=== PATIENT | female | born 1970 | race African-American/Black ===

== ENCOUNTER 2022-03-14 22:50 | Outpatient (CLI) | payer SELFPAY ==
--- OUTSIDE RECORDS SUMMARY | 2022-04-21 20:03 | XMS_ITS | Encounter Summary ---
:1970 Author Organization [facility] Address [address] [place] [address] Care Team Providers Name Role Phone Unavailable Primary Care Provider Unavailable Reason for Visit Reason Onset Date Comments Travel Consult 12/06/2020 Encounter Details Date Type Department Care Team Description 12/06/2020 Office Visit [facility] [address] [employer] ing for travel; Travel Clinic RN Need for immunization agains t viral hepatitis [address] [facility]. [place], [place] [phone] Social History Tobacco Use Types Packs/Day Years [...] countries: 9 weeks. Countries of travel: [place] ([facility]) Areas in country: rural and urban Traveling to Malarial area: yes Time in malarial area: 9 weeks. Reviewed Malarial risk map: yes Prior malarial chemoprophylaxis use: Yes, Pt. Reports she gets her malaria chemoprophylaxis in [place]. She is not sure of name of [...] 02/28/2010, 05/31/2013 ??? Influenza IIV4 (Quadrivalent) 0.5mL ([id number]) 03/01/2015, 03/17/2019 ??? Influenza, Unspecified Formulation 03/01/2016 [...]
--- OUTSIDE RECORDS SUMMARY | 2022-04-21 20:03 | XMS_ITS | Clinical Summary ---
:1970 [facility] Address [address] [place] [address] Care Team Providers Name Role Phone Unavailable [...] for each transition of care or referral. [employer] Allergies Active Allergy Reactions Severity Noted Date [...] yrs) 05/31/2013, 02/28/2010 Influenza IIV4 (Quadrivalent) 0.5mL (13723) 03/17/2019, 02/15 Influenza, Unspecified Formulation 03/01/2016 MCV4 [...]
--- OUTSIDE RECORDS SUMMARY | 2022-04-21 20:03 | XMS_ITS | Clinical Summary ---
:1970 Author Organization [facility] [place] [address] Care Team Providers Name Role Phone Alayna Harp Primary Care Provider [phone] Allergies Active Allergy Reactions Severity Noted Date [...] Encounters Date Type Specialty Care Team Description 04/21/2022 Telephone Alayna Harp, Form (PROOF OF FULL COVID-19 PA VACCINATION) from Last 3 Months Immunizations Name Administration Dates Next Due AMB Influenza, IIV4 PF (=>6 mos 03/17/2019 Flulaval,Fluzone Fluarix)(Flu Clinic Only) COVID-19 vaccine (Moderna 100mcg/0.5mL) 06/18/2020, 05/24/19 21 PF, MDV Hepatitis A (Adult) 05/31/2013, 02/28/2010 Influenza Virus, Unspecified 03/01/2016 Influenza, IIV3 (Age >=3 years) 04/05/2007 Influenza, IIV4 02/26/2022, 03/05/2021, 03/01/2015 Influenza, IIV4 (=>6mos) MDV 01/22/2018, 01/20/2017 [...] 05/09 40w 4 kg (8 F Jenny 0d lb 13 ng oz) 09/17 39w 3.26 kg F Jenny /2005 0d (7 lb 3 ng oz) Last Filed Vital Signs Vital Sign Reading Time Taken Comments Blood Pressure 117/78 07/08/2021 10:01 AM PATROL MAN Pulse 96 07/08/2021 10:01 AM PATROL MAN Temperature 36.8 ??C (98.3 ??F) 01/24/2019 6:38 PM CDT Respiratory Rate 16 11/21/2020 8:47 AM CDT Oxygen Saturation 99% 11/21/2020 8:47 AM CDT Inhaled Oxygen Concentration - - Weight 62.6 kg (138 lb) 07/08/2021 10:01 AM PATROL MAN Height 162 cm (5' 3.78) 07/08/2021 10:01 AM PATROL MAN Body Mass Index 23.85 07/08/2021 10:01 AM PATROL MAN Plan of Treatment Health Maintenance Due Date Last Done Comments Zoster (shingles) series for age 0207/15/2019 50+ (1 of 2) Depression screening for age 12+ 10/26/2021 10/26/2020, 01/2019, 01/22/2018, Additional history exists Mammogram for age 45-75 10/26/2021 10/26/2020, 04/25/2019, 01/20/2017, Additional history exists BMI (ht and wt on same day) for 07/08/2022 07/08/2021, 05/19, age 18+ 06/10/2021, Additional history exists Tetanus booster 05/31/2023 05/31/2013, 04/17/2004 Lipids for age 45-75 10/26/2025 10/26/2020, 01/24/2019, 01/20/2017, Additional history exists Pap test for age 21-65 10/26/2025 10/26/2020, 10/26/2020, 01/22/2018, Additional history exists Colonoscopy through age 75 11/21/2030 11/21/2020, , 11/21/2020, Additional history exists Tdap Completed 04/17/2004 HIV for age 15-65 Completed 02/20/2020, 07/19/2019 Hepatitis C screening for age Completed 02/20/2020, 2019 18-79 Influenza for age 50-64 Completed 02/26/2022, 03/05/2021, 03/17/2019, Additional history exists COVID-19 vaccine series Completed 03/05/2022, 04/09/2021, 06/18/2020, Additional history exists Results Not on filefrom Last 3 Months Insurance Payer Benefit Plan / Subscriber ID Effective Phone Address T ype Group Dates [employer] WORK[employer] WORK[employer] COMP [id number] 2011-Pres [phone] [address] [place] [address] WC WORK[employer] WC JOSE JUAN [id number] 2019-Pre 1999 [employer] [phone] [place] [address] WC WORKERS WC MEAWYOAN [id number] 2021-Pres 1999 [employer] [phone] [place] [address] MEDICA MEDICA CHOICE [id number] 2020-Prese [address] [address] [place] [address] Care Teams Drag Out Worker Relationship Specialty Start Date End Date Alayna Harp PA PCP - General Family Practice 04/30/15 [address] [place] [address]
== END 2022-03-14 22:51 | disposition home or self-care (01) ==
LOC: AMB 04-21 20:01
PROVIDERS: PCP Physician Assistant Medical; Visit Provider Family Medicine
DX: M54.9 Dorsalgia, unspecified (principal)
CPT/HCPCS: A0425; A0427

== ENCOUNTER 2022-03-14 23:14 | Emergency (ER) | payer SELFPAY ==
[2022-03-14 23:23] VITALS: BP 140/86; PULSE 79; RESP 16; TEMP 36.6; O2SAT 98; BMI 23.0
[2022-03-15] MEDS: KETOROLAC 30 MG/ML inj IVP (00:04)
[2022-03-15] MEDS: 0.9 % SODIUM CHLORIDE 500 ML 500 ML IV (00:04)
[2022-03-15] MEDS: LORazepam 2 MG/ML inj 0.5 MG IVP (00:05)
[2022-03-15] MEDS: MORPHINE 4 MG/ML INJ IVP (00:07)
--- NOTE | 2022-03-15 00:29 | ED_ITS ---
HPI - Back Pain/Injury General Date Seen: 03/15/22 Chief Complaint: Back Injury/Pain Stated Complaint: backpain Time Seen by Provider: 03/14/22 23:34 Source: patient, family and EMS Mode of arrival: EMS Limitations: no limitations History of Present Illness HPI Narrative: Patient is a 51-year-old female presents by EMS with back pain and spasm, been having back pain for last couple days, went to her chiropractor today, the back pain gradually worsened as the day went on, and she was unable to get upper straight up, which necessitated for calling the ambulance. She describes back pain, that radiates down both of her buttocks, she is not incontinent of stool or urine, she did take Tylenol ibuprofen today. She has been using some heat on her back also. She tells me she has a history of an S3 or L3 issue, she sees Alayna Vega at [facility]. 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 The pain worsened today with a coughing/sneezing episode MD elicited complaint: back pain Onset (ago): day(s) Timing: improved Severity: severe Similar Symptoms Previously: Yes Quality: sharp and stabbing Location: lumbar spine Exacerbating factors: movement, sitting upright and coughing/sneezing Treatments prior to arrival: cold therapy, NSAIDS and acetaminophen Work related injury: Yes Related Data Home Medications Medication Instructions Recorded Confirmed amlodipine 5 mg tablet 5 mg PO DAILY 03/14/22 03/14/22 Allergies Allergy/AdvReac Type Severity Reaction Status Date / Time azithromycin AdvReac Verified 03/14/22 23:23 Review of Systems Status of ROS: Reports: 10 or more systems reviewed and unremarkable except as noted in History and below Exam Narrative: Exam Narrative: Patient is seen and stabilization room 2, she is lying on her right side, with a pillow between her legs, she was able to get up to the sitting position and standing position for me, she does have a scoliosis of her back which likely is reactive from muscle spasm convex left. No palpable pain over her back on palpation or percussion she has grossly normal sensation over her sacral area. She has stooped forward in a forward flexed posture, and can come straight up to folic extension. SLR is are negative to 90? sitting, EHLs great toe flexors and extensors, ankle dorsiflexors plantar flexors knee flexors and extensors, and hip flexors are graded 5/5 power bilaterally her reflexes are +2/4 her ankles and knees in her sensation is normal over all her dermatomal areas. Skin reveals no petechiae or rashes Const: Vital Signs, click to edit/add: Vital Signs - 24 hr 03/14/22 23:23 Temperature 97.9 F Pulse Rate [Left P ulse Oximeter] 79 Respiratory Rate 16 Blood Pressure [Ri ght Upper Arm] 140/86 H Pulse Oximetry 98 Oxygen Delivery Me thod Room Air Documenting provider has reviewed patient's vital signs: yes Course Course Hospital Course: With the treatments her pain improved, I was able to review the [facility] MRI from 2019. Of her lumbar spine. This showed at L3-L4 disc degeneration along with impingement on the transversing nerve root. At L4. And also at L3. I discussed with her that I think home rest use of medications along with a prednisone burst would be favorable for her. Off work for the next 3 days. Went over signs and symptoms of worsening, review of the CHILDH[employer]OD DEVELOPMENT TEACHER did not show any prescriptions. Vital Signs Vital signs: Initial Vital Signs Temperature 97.9 F 03/14/22 23:23 Temperature Source Temporal Artery Scan 03/14/22 23:23 Pulse Rate 79 03/14/22 23:23 Pulse Rhythm 03/14/22 23:23 Respiratory Rate 16 03/14/22 23:23 Blood Pressure 140/86 H 03/14/22 23:23 Blood Pressure Mean 104 03/14/22 23:23 Blood Pressure Position Supine 03/14/22 23:23 Pulse Oximetry 98 03/14/22 23:23 Oxygen Delivery Method 03/14/22 23:23 Vital Signs Temperature 97.9 F 03/14/22 23:23 Pulse Rate 79 03/14/22 23:23 Respiratory Rate 16 03/14/22 23:23 Blood Pressure 140/86 H 03/14/22 23:23 Pulse Oximetry 98 03/14/22 23:23 Oxygen Delivery Method 03/14/22 23:23 Temperature 97.9 F 03/14/22 23:23 Pulse Rate 79 03/14/22 23:23 Respiratory Rate 16 03/14/22 23:23 Blood Pressure 140/86 H 03/14/22 23:23 Pulse Oximetry 98 03/14/22 23:23 Oxygen Delivery Method 03/14/22 23:23 MDM - Back Pain/Injury MDM Narrative Medical decision making narrative: Life-threatening differential diagnosis considered include: Cauda equina an epidural abscess, other differential diagnosis considered includes sprain, contusion, nerve root entrapment, radiculopathy, muscle spasm, urolithiasis, lumbar fracture, pyelonephritis, appendicitis, biliary colic, as well as other etiologies. The patient denies saddle anesthesia bowel or bladder incontinence or lower extremity weakness, recent weight loss, or history of malignancy. Differential Diagnosis Differential diagnosis: Likely lumbar radiculopathy, sciatica, strain of lumbar region, renal colic, pyelonephritis, thoracic back pain, AAA and discitis Medical Records Attestation: I reviewed the patient's medical records. Discharge Plan Discharge Clinical Impression: Strain of lumbar region Patient Disposition: Home w/ Parent or Adult Condition: Improved Instructions: Low Back Strain (ED), Back Pain (ED), Cold Compress or Soak (ED) Additional Instructions: Home, rest, no work for the next 3 days, let your back improved. Recommend follow-up with her primary care provider in the next few days. Prescriptions given for pain medication along with muscle relaxant. Prescriptions: No Action amlodipine 5 mg tablet 5 mg PO DAILY Stand Alone Forms: [employer] Info Instructions
--- OUTSIDE RECORDS SUMMARY | 2022-03-15 00:36 | XMS_ITS | Clinical Summary ---
:1970 Author Organization [facility] [place] [address] Care Team Providers Name Role Phone Alayna Harp Primary Care Provider [phone] Allergies Active Allergy Reactions Severity Noted Date Comments Erythromycin Rash 09/14/2007 Medications Medication Sig Dispensed Refills Start Date End Date Status multivitamin (MVI) Take 1 tablet by 0 11/25/2011 Active tablet mouth once daily. diclofenac enteric Take 1 Tablet (50 60 tablet. 0 12/05/2020 Active coated (VOLTAREN) 50 mg) by mouth 2 mg tabletIndications: times daily with Chronic midline low meals. back pain without sciatica LORazepam (ATIVAN) 0.5 Take 1-2 Tablets 10 tablet. 0 1 Active mg tabIndications: (0.5-1 mg) by Anxiety mouth at bedtime if needed for Anxiety. 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 09/14/2007 Resolved Problems Problem Noted Date Resolved Date Palpitations 02/05/2009 12/09/2014 Iron deficiency anemia, unspecified 08/16/200811/16 Helicobacter pylori (H. pylori) 06/30/2008 12/10/19 15 Encounters Date Type Specialty Care Team Description 12/27/2021 Telephone Alayna Harp Ques tions (Regarding positive PA COVID-19 result and medications) 12/27/2021 Refill Alayna Harp Refi ll Request (Amlodipine) PA from Last 3 Months Immunizations Name Administration Dates Next Due AMB Influenza, IIV4 PF (=>6 mos Flulaval,Fluzone 03/17/2019 Fluarix)(Flu Clinic Only) COVID-19 vaccine (Moderna 100mcg/0.5mL) PF, MDV 06/18/2020, 05/24/2020 Hepatitis A (Adult) 05/31/2013, 02/28/2010 Influenza Virus, Unspecified 03/01/2016 Influenza, IIV3 (Age >=3 years) 04/05/2007 Influenza, IIV4 03/01/2015 Influenza, IIV4 (=>6mos) MDV 01/22/2018, 01/20/2017 MMR 11/05/2016, 04/15/2016 Meningococcal Vaccine (Menveo) 04/15/2016 Td, Preservative Free (age >= 7 Years) 05/31/2013 Tdap 04/17/2004 Typhoid (injectable) 10/26/2020, 11/05/2016 Yellow Fever 02/28/2010 Family History Medical History Relation Name Comments Diabetes Father Dementia Mother late onset Diabetes Other in family Cancer-breast No Family History Relation Name Status Comments Father (Age 92) Mother (Age 83) Other Social History Tobacco Use Types Packs/Day Years Used Date Never Smoker Smokeless Tobacco: Never Used Tobacco Cessation: Counseling Given: Yes Alcohol Use Standard Drinks/Week Comments No 0 (1 standard drink = 0.6 oz pure alcoho l) Sex Assigned at Date Recorded Not on file Obstetrics History Para Term AB IAB SAB Ectopic Multiple Living Live Births 4 2 2 2 Date Outcome GA Total Labor/2nd/3rd Weight Sex Delivery Anes PTL Alyssa A 1 A5 Name Clin Labor Para Para 05/09 40w 4 kg (8 F Jenny /2002 0d lb 13 ng oz) 09/17 39w 3.26 kg F Jenny /2005 0d (7 lb 3 ng oz) Last Filed Vital Signs Vital Sign Reading Time Taken Comments Blood Pressure 117/78 07/08/2021 10:01 AM APPLIED TECHNOLOGIST Pulse 96 07/08/2021 10:01 AM APPLIED TECHNOLOGIST Temperature 36.8 ??C (98.3 ??F) 01/24/2019 6:38 PM CDT Respiratory Rate 16 11/21/2020 8:47 AM CDT Oxygen Saturation 99% 11/21/2020 8:47 AM CDT Inhaled Oxygen Concentration - - Weight 62.6 kg (138 lb) 07/08/2021 10:01 AM APPLIED TECHNOLOGIST Height 162 cm (5' 3.78) 07/08/2021 10:01 AM APPLIED TECHNOLOGIST Body Mass Index 23.85 07/08/2021 10:01 AM APPLIED TECHNOLOGIST Plan of Treatment Health Maintenance Due Date Last Done Comments Zoster (shingles) series for age 0207/15/2019 50+ (1 of 2) COVID-19 vaccine series (4 - 06/04/2021 04/09/2021, 021, Booster for Moderna series) 05/24/2020 Depression screening for age 12+ 10/26/2021 10/26/2020, 01/2019, 01/22/2018, Additional history exists Mammogram for age 45-75 10/26/2021 10/26/2020, 04/25/2019, 01/20/2017, Additional history exists Influenza for age 50-64 01/16/2022 03/17/2019, 01/22/2018, 01/20/2017, Additional history exists BMI (ht and wt on same day) for 07/08/2022 07/08/2021, 05/19, age 18+ 06/10/2021, Additional history exists Tetanus booster 05/31/2023 05/31/2013, 04/17/2004 Lipids for age 45-75 10/26/2025 10/26/2020, 01/24/2019, 01/20/2017, Additional history exists Pap test for age 21-65 10/26/2025 10/26/2020, 10/26/2020, 01/22/2018, Additional history exists Colonoscopy through age 75 11/21/2030 11/21/2020, , 11/21/2020, Additional history exists Tdap Completed 04/17/2004 Hepatitis C screening for age Completed 02/20/2020, 2019 18-79 Results Not on filefrom Last 3 Months Insurance Payer Benefit Plan / Subscriber ID Effective Phone Address T ype Group Dates WC WORKERS WC WORKERS COMP [id number] 2011-Pres [phone] [address] [place] [address] WC WORKERS WC JOSE JUAN [id number] 2019-Pre 1999 [employer] sent [address] [place] [address] WC WORKERS WC MEAWYOAN [id number] 2021-Pres 1999 [employer] ent [address] [place] [address] MEDICA MEDICA CHOICE [id number] 2020-Prese [address] [address] [place] [address] Care Teams Mapping Pilot Relationship Specialty Start Date End Date Alayna Harp PA PCP - General Family Practice 04/30/15 [address] [place] [address]
--- OUTSIDE RECORDS SUMMARY | 2022-03-15 00:36 | XMS_ITS | Encounter Summary ---
:1970 [facility] Address [address], [place] [address] Care Team Providers Name Role Phone Unavailable Primary Care Provider Unavailable Reason for Visit Reason Onset Date Comments Travel Consult 12/06/2020 Encounter Details Date Type Department Care Team Description 12/06/2020 Office Visit [facility] [address] Clean[address] ing for travel; Travel Clinic RN Need for immunization agains t viral hepatitis [address] [facility]. [place], [place] [id number] Social History Tobacco Use Types Packs/Day Years Used Date Smoking Tobacco: Never Assessed Sex Assigned at Date Recorded Not on file documented as of this encounter Patient Instructions Patient InstructionsAshlee Silva, RN - 12/06/2020 3:00 PM CDT Pt was told about CDC's new guidelines: Effective June 12, the Centers of Disease Control and Prevention (CDC) will require all air passengers entering the [place] (including [place] citizens and Legal Permanent Residents) to present anegative COVID-19 test, taken within three calendar days of departure, or proof of recovery from thevirus within the last 90 days. Airlines must confirm the negative test result or proof of recent recovery for all passengers prior to boarding. Airlines must deny boarding of passengers who do not provide documentation of a negative test or recovery. The CDC is recommending that international travelers get tested 3-5 days after travel and stay home for 7 days. If the test is negative, the traveler should stay home for the full 7 days. If a travelerdoes not get tested, it???s safest to stay home for 14 days. These new recommendations are importantsteps in controlling the spread of COVID-19. documented in this encounter Progress Notes Ashlee Silva RN - 12/06/2020 3:00 PM CDT Subjective: Tiffanie Michael is a 50 y.o. female who presents to the clinic for travel consultation individually. TRAVEL PLANS Planned departure date: December 08, 2020 Time in developing countries: 9 weeks. Countries of travel: [place] ([facility]) Areas in country: rural and urban Traveling to Malarial area: yes Time in malarial area: 9 weeks. Reviewed Malarial risk map: yes Prior malarial chemoprophylaxis use: Yes, Pt. Reports she gets her malaria chemoprophylaxis in [facility]. She is not sure of name of drug, but declines malaria chemoprophylaxis today. Traveling to Yellow Fever area: yes, new YF card given Accommodations: private home Purpose of travel: visiting friends and relatives (VFR) PRIOR HEALTH HISTORY Currently ill / Fever:No Currently taking antibiotics: No History of liver or kidney disease: No History of anxiety or depression: Has lorazepam Rx for flight anxiety History of cardiac arrhythmia or rhythm conduction abnormalities (QT prolongation): No History of GERD/IBS:No History of cancer: No Currently immune compromised or taking high dose steroids: No Other relevant travel health history: No There is no problem list on file for this patient. Allergies Allergen Reactions ??? Erythromycin Rash Outpatient Medications Prior to Visit Medication Sig Dispense Refill ??? amLODIPine (NORVASC) 5 MG tablet ??? diclofenac (VOLTAREN) 50 MG enteric coated tablet Take 50 mg by mouth. ??? LORazepam (ATIVAN) 0.5 MG tablet No facility-administered medications prior to visit. Is the patient ?no ?no Assessment: Contraindications to travel: No Plan: PATIENT EDUCATION Patient was given verbal and/or written information about: Trypanosomiasis, Dengue Fever, Diphtheria/Tetanus, Filarial, Hepatitis A, Hepatitis B, HIV, Influenza, Insect-related illnesses and prevention, Leishmaniasis, Malaria, Meningitis, MMR, Polio, Rabies--pre-exposure schedule, Rabies--post-exposure schedule, Schistosomiasis, Sexually Transmitted Diseases, Tickborne Illnesses, Travax/CDC information, Traveler's Diarrhea, Tuberculosis, Typhoid, Varicella, Viral hemorrhagic fever, Yellow Fever, Zika COVID-19. Reviewed vaccine schedule and efficacy. Patient was also provided information about health care and insurance information while traveling abroad. Patient appears to understand all the information provided. Discussed the use of Pepto Bismol and Imodium (follow package insert) See below for vaccines and medications ordered this visit. 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 Return To Clinic: No follow-up visit needed. More than 50% of appointment time spent on patient education or counseling. Total counseling time: 15 minutes. IMMUNIZATIONS AND PRESCRIPTIONS Immunization counseling was provided for the vaccines that were administered at the visit No orders of the defined types were placed in this encounter. Orders Placed This Encounter Medications ??? ciprofloxacin (CIPRO) 500 MG tablet Sig: Take one tablet twice a day for three days for severe traveler's diarrhea. Dispense: 6 Tablet Refill: 0 Immunization History Administered Date(s) Administered ??? Flu Vac (3+ yrs) 04/05/2007 ??? Fluzone Qiv Multidose Vial 0.25 (6-35 Mos) 01/20/2017, 01/22/2018 ??? HepA Adult (19+ yrs) 02/28/2010, 05/31/2013 ??? Influenza IIV4 (Quadrivalent) 0.5mL (78189) 03/01/2015, 03/17/2019 ??? Influenza, Unspecified Formulation 03/01/2016 ??? MCV4 (Menveo) 04/15/2016 ??? MMR 04/15/2016, 11/05/2016 ??? Moderna COVID-19 05/24/2020, 06/18/2020 ??? Td, Preservative Free 05/31/2013 ??? Tdap 04/17/2004 ??? Typhoid (Typhim Vi, IM) 11/05/2016, 10/26/2020 ??? YF (Yellow Fever) 02/28/2010 documented in this encounter Plan of Treatment Not on filedocumented as of this encounter Visit Diagnoses Diagnosis Counseling for travel Other specified counseling Need for immunization against viral hepa titis Need for prophylactic vaccination and in oculation against viral hepatitis documented in this encounter
--- OUTSIDE RECORDS SUMMARY | 2022-03-15 00:36 | XMS_ITS | Clinical Summary ---
:1970 [facility] Address [address], [place] [address] Care Team Providers Name Role Phone Unavailable Primary Care Provider Unavailable Source Comments You are receiving this document as you are listed as the primary care provider,follow-up provider, or the patient has been referred to you for consultation.This is in compliance with the Medicare and Medicaid EHR Incentive Program,which states Providers who transition their patient to another setting of careor provider of care or refers their patient to another provider of care shouldprovide summarycare record for each transition of care or referral. [place]er[place] Allergies Active Allergy Reactions Severity Noted Date Comments Erythromycin Rash 09/14/2007 Medications Medication Sig Dispensed Refills Start Date End Date Status amLODIPine (NORVASC) 5 0 10/19/2020 Active MG tablet diclofenac (VOLTAREN) 50 Take 50 mg by 0 12/05/2020 Active MG enteric coated tablet mouth. LORazepam (ATIVAN) 0.5 0 12/05/2020 Active MG tablet ciprofloxacin (CIPRO) Take one tablet 6 Tablet 0 12/06/2020 Active 500 MG twice a day for tabletIndications: three days for Counseling for travel severe traveler's diarrhea. Immunizations Name Administration Dates Next Due Flu Vac (3+ yrs) 04/05/2007 Fluzone Qiv Multidose Vial 0.25 (6-35 Mos) 01/22/2018, 01/20 HepA Adult (19+ yrs) 05/31/2013, 02/28/2010 Influenza IIV4 (Quadrivalent) 0.5mL ([id number]) 03/17/2019, 02/15 Influenza, Unspecified Formulation 03/01/2016 MCV4 (Menveo) 04/15/2016 MMR 11/05/2016, 04/15/2016 Moderna (Spikevax) COVID-19, 12+ Yrs 06/18/2020, 05/24/2020 Td, Preservative Free 05/31/2013 Tdap 04/17/2004 Typhoid (Typhim Vi, IM) 10/26/2020, 11/05/2016 YF (Yellow Fever) 02/28/2010 Social History Tobacco Use Types Packs/Day Years Used Date Smoking Tobacco: Never Assessed Sex Assigned at Date Recorded Not on file Plan of Treatment Health Maintenance Due Date Last Done Comments Cervical Cancer Screening 1970 Due Colon Cancer Screening Plan 1970 Due Hep C Screening (Preventive 1970 Services) HepB (1) 1970 Mammogram 1970 HIV Screening (Preventive 1985 Services) Adult Preventive Visit 1987 Cholesterol 2014 Zoster/Shingles (1 of 2) 2019 COVID-19 Vaccine (3 - 08/13/2020 06/18/2020, 05/24/2020 Booster for Moderna series) Influenza (#1) 2022 03/17/2019, 01/22/2018, 01/20/2017, Additional history exists DTaP/Tdap/Td (3 - Tdap) 05/31/2023 05/31/2013, 04/17/2004 HepA Aged Out 05/31/2013, 02/28/2010 No longer eligible based on patient 's age to complete this topic MCV4 Aged Out 04/15/2016 No longer eligib le based on patient 's age to complete this topic Hib Aged Out No longer eligib le based on patient 's age to complete this topic IPV (Polio) Aged Out No longer eligib le based on patient 's age to complete this topic Pneumococcal Aged Out No longer eligib le based on patient 's age to complete this topic
[2022-03-15 01:00] VITALS: BP 136/84; PULSE 74; RESP 16; O2SAT 98
[2022-03-15 01:12] VITALS: O2SAT 97
--- NOTE | 2022-03-15 01:40 | ED.NURSE ---
patient went out to get insty meds with dtr at side, states went into bathroom and vomited, then sharp pain came back, MD Granda updated. states ODT zofran and eduation to go home and rest, pt agreeable.
[2022-03-15 01:41] VITALS: BP 136/84; PULSE 74; RESP 16
[2022-03-15] MEDS: ONDANSETRON ODT 4 MG TAB PO (01:42)
== END 2022-03-15 01:43 | disposition home or self-care (01) ==
LOC: ED 03-15 00:35
PROVIDERS: Emergency Provider Family Medicine; PCP Physician Assistant Medical
DX: S39.012A Strain of muscle, fascia and tendon of lower back, initial encounter (principal)
CPT/HCPCS: 94761; 96374; 96375; 99283; 99284; A9270; J1885; J2060; J2270; J7120

== ENCOUNTER 2023-09-04 20:25 | Outpatient (CLI) | payer OTHER, SELFPAY ==
--- OUTSIDE RECORDS SUMMARY | 2023-09-14 13:08 | XMS_ITS | Clinical Summary ---
Author Name Unknown Organization [facility] Address [address] [place] [address] Care Team Providers Care Compounding Pharmacy Technician Name Role Phone Unavailable Primary Care Provider Unavailabl e Source Comments You are receiving this document as you are listed as the primary care provider,follow-up provider, or the patient has been referred to you for consultation.This is in compliance with the Medicare andMedicaid EHR Incentive Program,which states Providers who transition their patient to another setting of careor provider of care or refers their patient to another provider of care shouldprovide summary care record for each transition of care or referral. [facility] Allergies Active Allergy Reactions Criticality Noted Date Comments Erythromycin Rash 09/14/2007 Medications Medication Sig Dispensed Refills Start Date End Date Status amLODIPine (NORVASC) 5 MG tablet 10/19/2020 Active diclofenac (VOLTAREN) 50 MG enteric coated tablet Take 50 mg by mouth. 12/05/2020 Active LORazepam (ATIVAN) 0.5 MG tablet 12/05/2020 Active ciprofloxacin (CIPRO) 500 MG tabletIndications:Coun seling for travel Take one tablet twice a day for three days for severe traveler's diarrhea. 6 Tablet 12/06/2020 Active Immunizations Name Administration Dates Next Due Flu Vac (3+ yrs) 04/05/2007 Fluzone Qiv Multidose Vial 0.25 (6-35 Mos) 01/22,01/20/2017 HepA Adult (19+ yrs) 05/31/2013,02/28/2010 Influenza IIV4 (Quadrivalent) 0.5mL (67262) 02/17,03/01/2015 Influenza, Unspecified Formulation 03/01/2016 MCV4 Menveo 2m.+ (two vial) 04/15/2016 MMR 11/05/2016,04/15/2016 Moderna Monovalent 12+ 06/18/2020,05/24/2020 Td, Preservative Free 05/31/2013 Tdap 04/17/2004 Typhoid (Typhim Vi, IM) 10/26/2020,11/05/2016 YF (Yellow Fever) 02/28/2010 Social History Tobacco Use Types Packs/Day Years Used Date Smoking Tobacco: Never Assessed Sex and Gender Information Value Date Recorded Sex Assigned at Not on file Gender Identity Not on file Sexual Orientation Not on file Plan of Treatment Health Maintenance Due Date Last Done Comments Cervical Cancer Screening Due 1970 Colon Cancer Screening Plan Due 1970 Hep C Screening (Preventive Services) 1970 HIV Screening (Preventive Services) 1985 Adult Preventive Visit 1987 HepB (1) 1988 Cholesterol 2014 Zoster/Shingles (1 of 2) 2019 Mammogram 10/26/2021 10/26/2020 COVID-19 Vaccine ( season) 2023 06/18/2020, 05/24/2020 Influenza (#1) 2023 03/17/2019, 11/2017, 01/20/2017, Additional history exists DTaP/Tdap/Td (3 - Tdap) 05/31/2023 05/31/2013, 04/17 HepA Aged Out 05/31/2013, 02/28/2010 No lo nger eligible based on patient's age to complete this topic MCV4 Aged Out 04/15/2016 No longer eligi ble based on patient's age to complete this topic Hib Aged Out No longer eligi ble based on patient's age to complete this topic IPV (Polio) Aged Out No longer eligi ble based on patient's age to complete this topic Pneumococcal Aged Out No longer eligi ble based on patient's age to complete this topic Procedures Procedure Name Priority Date/Time Associated Diagnosis Comments RADEX FNGR MINIMUM 2 VIEWS 11/24/1995 12:00 AM CDT Finger Injury Nos Fx Phalanx, Hand Nos-Close from Last 3 Months or Most Recently Relevant to Health Maintenance
--- OUTSIDE RECORDS SUMMARY | 2023-09-14 13:08 | XMS_ITS | Clinical Summary ---
Author Name Unknown Organization [facility] [employer] [facility] Address [place], [place] [address] Care Team Providers Care Couture Dressmaker Name Role Phone Alayna Harp Primary Care Provider Allergies Active Allergy Reactions Criticality Noted Date Comments Erythromycin Rash 09/14/2007 Medications Medication Sig Dispensed Refills Start Date End Date Status multivitamin (MVI) tablet Take 1 tablet by mouth once daily. 0 11/25/2011 Active carbamide peroxide (Debrox) 6.5 % otic solutionIndication s:Excessive cerumen in ear canal, unspecified laterality Place 5 Drops into both ears two times daily. 15 mL 09/16/2022 Active diclofenac enteric coated (VOLTAREN) 50 mg tabletIndications: Chronic midline low back pain without sciatica TAKE ONE TABLET BY MOUTH TWICE A DAY WITH MEALS 60 Tablet 11/20/2022 Active LORazepam (ATIVAN) 0.5 mg tabIndications:Anx iety One oral twice daily as needed for anxiety or insomnia. 10 Tablet 03/12/2023 Active amLODIPine (NORVASC) 10 mg tabletIndications: Primary hypertension Take 1 Tablet (10 mg) by mouth once daily. 100 Tablet 3 09/02/2023 Active cyclobenzaprine (FLEXERIL) 10 mg tabletIndications: Chronic midline low back pain with left-sided sciatica Take 1 Tablet (10 mg) by mouth 3 times daily if needed for Muscle Spasm. 30 Tablet 09/02/2023 Active amLODIPine (NORVASC) 5 mg tabletIndications: HTN (hypertension) Take 1 Tablet (5 mg) by mouth once daily. 90 Tablet 3 09/15/2022 09/02/2023 Discontinued (*Medication adjustment) Active Problems Problem Noted Date Diagnosed Date Developmental venous anomaly 09/15/2022 HTN (hypertension) 03/27/2015 Menorrhagia 03/09/2012 IBS (irritable bowel syndrome) 03/17/2009 GERD (gastroesophageal reflux disease) 9 PPD positive 02/05/2009 Panic disorder without agoraphobia 12/17/2007 health maintenance. 09/14/2007 Resolved Problems Problem Noted Date Diagnosed Date Resolved Date Palpitations 02/05/2009 12/09/2014 Iron deficiency anemia, unspecified 08/16/2008 12/09/2014 Helicobacter pylori (H. pylori) 06/30/2008 12/09/2014 Encounters Date Type Department Care Team Description 09/02/2023 12:40 PM CDT Office Visit [facility] [address] [place] [address] Madan Hugo MD Results (stress test results) 09/02/2023 Travel 08/10/[address] [address] Vern Barajas DO Results 08/06/2023 11:35 AM CDT Phone Office Visit [facility] [address] [address] Carissa Lin NP Telehealth ( control) 08/06/2023 8:00 AM CDT Office Visit [facility] [address] [place] [address] Cardiovascular Diagnostic Testing (Stress echo) 08/06/[address] [address] Alayna Harp PA Contraception 08/06/2023 Travel 07/02/2023 Orders Only [address] [address] Madan Hugo MD 1 scan: (1-Ord) NFLD-EKG-2.14.24 07/01/2023 4:25 PM ORCHID WORKER Office Visit [facility] [address] [place] [address] Madan Hugo MD Musculoskeletal Problem (shoulder pain-under shoulder blade-worse with laying, getting a lot better ); Chest Pain (left sided chest pain-started after lifting heavy bag/box on Thursday) 07/01/2023 Travel 06/30/2023 Nurse Triage [facility] [address] [place] [address] Alayna Harp PA Back Pain from Last 3 Months Immunizations Name Administration Dates Next Due AMB Influenza, IIV4 PF (=>6 mos Flulaval,Fluzone Fluarix)(Flu Clinic Only) 03/17/2019 COVID-19 vaccine (Moderna 10 0mcg/0.5mL) PF, MDV 06/18/2020,05/24/2020 Hepatitis A (Adult) 05/31/2013,02/28/2010 Influenza Virus, Unspecified 03/01/2016 Influenza, IIV3 (Age >=3 years) 04/05/2007 Influenza, IIV4 02/26/2022,03/05/2021,03/01/2015 Influenza, IIV4 (=>6mos) MDV 01/22/2018,01/21/20 17 MMR 11/05/2016,04/15/2016 Meningococcal Vaccine (Menveo) 04/15/2016 Td, Preservative Free (age >= 7 Years) 4 Tdap 09/02/2023,04/17/2004 Typhoid (injectable) 10/26/2020,11/05/2016 Yellow Fever 02/28/2010 Zoster (Shingrix-RZV, recombinant) 09/02/2023, Family History Medical History Relation Name Comments Diabetes Father Dementia Mother late onset Diabetes Other in family Cancer-breast No Family History Relation Name Status Comments Father (Age 92) Mother (Age 83) Other Social History Tobacco Use Types Packs/Day Years Used Date Smoking Tobacco: Never Smokeless Tobacco: Never Tobacco Cessation:Counseling Given: No Alcohol Use Standard Drinks/Week Comments No 0 (1 standard drink = 0.6 oz pur e alcohol) PHQ-2 Answer Date Recorded PHQ-2 TOTAL SCORE 0 09/02/2023 Social Connections Answer Date Recorded Frequency of Communication with Friends and Fami ly 0 03/12/2023 Financial Resource Strain Answer Date R ecorded Difficulty of Paying Living Expenses 1 03/12/2023 Difficulty of Paying Living Expenses 2 03/12/2023 Food Insecurity Answer Date Recorded Worried About Running Out of Food in the Last Ye ar 2 03/12/2023 Transportation Needs Answer Date Record ed Lack of Transportation (Medical) 1 03/12/2023 Housing Stability Answer Date Recorded Unable to Pay for Housing in the Last Year 1 03/12/2023 Sex and Gender Information Value Date Recorded Sex Assigned at Not on file Gender Identity Not on file Sexual Orientation Not on file Obstetrics History Para Term AB IAB SAB Ectopic Multiple Livin g Live Births 4 2 2 2 Date Outcome GA Total Labor Labor/2nd/3rd Weight Sex Delivery Anes PTL Alyssa A1 A5 Name Cl in Para Para 05/09 40w 0d 4 kg (8 lb 13 oz) F Jenny ng 09/17 39w 0d 3.26 kg (7 lb 3 oz) F Jenny ng Last Filed Vital Signs Vital Sign Reading Time Taken Comments Blood Pressure 136/79 09/02/2023 12:47 PM CDT Pulse 86 09/02/2023 12:47 PM CDT Temperature 36.8 ??C (98.3 ??F) 01/24/2019 6:38 PM CD T Respiratory Rate 16 11/21/2020 8:47 AM CDT Oxygen Saturation 99% 09/02/2023 12:47 PM CDT Inhaled Oxygen Concentration - - Weight 62 kg (136 lb 9.6 oz) 09/02/2023 12:47 PM CDT Height 162 cm (5' 3.78) 09/15/2022 10:00 AM CDT Body Mass Index 23.61 09/15/2022 10:00 AM CDT Plan of Treatment Health Maintenance Due Date Last Done Comments BMI (ht and wt on same day) for age 18+ 09/16/2023 09/15/2022, 07/08/2021, 06/10/2021, Additional history exists Mammogram for age 45-75 09/19/2023 09/19/19 23, 10/26/2020, 04/25/2019, Additional history exists Influenza for age 50-64 01/17/2024 02/27/20 22, 03/05/2021, 03/17/2019, Additional history exists Depression screening for age 12+ 09/01/2024 09/02/2023, 10/26/2020, 01/24/2019, Additional history exists Pap test for age 21-65 10/26/2025 , 10/26/2020, 01/22/2018, Additional history exists Lipids for age 45-75 09/19/2027 09/18/2022, 10/26/2020, 01/24/2019, Additional history exists Colonoscopy through age 75 11/21/203011/21, 11/21/2020, 11/21/2020, Additional history exists Tetanus booster 09/01/2033 09/02/2023, 05/18, 04/17/2004 HIV for age 15-65 Completed 02/20/2020, 07/19/2019 Hepatitis C screening for age 18-79 Completed 02/20/2020, 07/19/2019 COVID-19 vaccine series Completed 02/17/20, 03/05/2022, 04/09/2021, Additional history exists Tdap Completed 09/02/2023, 04/17/2004 Zoster (shingles) series for age 50+ Completed 09/02/2023, 03/12/2023 Pneumococcal series for age 6-64 Aged Out No longer eligible based on patient's age to complete this topic Procedures Procedure Name Priority Date/Time Associated Diagnosis Comments FSH Routine 09/02/2023 1:33 PM CDT Perimenopause ECHO STRESS EXERCISE WO CONTRAST W COLOR W LTD DOPPLER Routine 08/06/2023 9:02 AM CDT Atypical chest pain Abnormal EKG MD CV STRS TST XERS&/OR RX CONT ECG W/SI&R Routine 08/06/2023 12:00 AM CDT Atypical chest pain Abnormal EKG EKG 12 LEAD Routine 07/02/2023 9:51 AM ORCHID WORKER Atypical chest pain MD READING EKG - NO CHARGE, COMP ONLY Routine 07/02/2023 9:50 AM ORCHID WORKER Atypical chest pain LIPID PANEL W REFLEX MEASURED LDL Routine 09/18/2022 11:00 AM CDT Screening for diabetes mellitus XR MAMMO ISABELLE BILAT SCREEN Routine 09/18/2022 10:55 AM CDT Visit for screening mammogram COLONOSCOPY SCREENING Routine 11/21/2020 7:47 AM CDT Screen for colon cancer BAG PRESSER THIN PREP PAP SCREEN IMAGED Routine 10/26/2020 8:58 AM CDT Screening for cervical cancer ANTI HIV 1/2 Routine 02/20/2020 1:47 PM CDT Exposure to body fluids by contaminated hypodermic needle stick ANTI HCV Routine 02/20/2020 1:47 PM CDT Exposure to body fluids by contaminated hypodermic needle stick from Last 3 Months or Most Recently Relevant to Health Maintenance Results * FSH (09/02/2023 1:33 PM CDT) FSH 82.6 mIU/mL 09/02/2023 9:45 PM CDT [facility] Blood BLOOD SPECIMEN / Unknown Venipuncture / Unknown 09/02/2023 1:33 PM CDT 09/02/2023 1:35 PM CDT Narrative [facility] - 09/02/2023 9:45 PM CDT FSH Reference Range Female: ? Follicular ?3.5 - ??12.5 mIU/ml ?Ovulatory ? 4.7 - ??21.5 mIU/ml ?Luteal ?1.7 - ?? 7.7 mIU/ml ?Post Menopausal ??25.8 - 134.8 mIU/ml Male: ? 1.5 - ??12.4 mIU/ml ? Madan Hugo MD CHEMISTRY [facility] [address] [place] [id number], * ECHO STRESS EXERCISE WO CONTRAST W COLOR W LTD DOPPLER (08/06/2023 9:02 AM CDT) EJECTION FRACTION 70 % LVEDD 4.2 cm EJECTION FRACTION 60 - 65% Anatomical Region Laterality Modality Ultrasound 08/06/2023 8:17 AM CDT Narrative 08/06/2023 9:43 AM CDT STRESS ECHOCARDIOGRAM MELISSA COOK ? Accession#: ?? [id number] : ?1970 53 years Study Date: ?? 08/06/2023 8:17:07 AM Gender: F ?BP: ? 143/81 mmHg Height: 160.00 cm ?BSA: ?1.61 m? ? ? Weight: 59.00 kg ? Tech: ? MTS ? Referring MD: MADAN HUGO Site: ? [facility] Reading Location: MOBILE OP Patient Location: Outpatient. Procedure: Stress Echo, Color Doppler and Limited Spectral Doppler. Chucho stress echo. Indication for study: Atypical chest pain; Abnormal EKG Cardiac Rhythm: Regular.Study quality: Final Impressions: 1. Maximum stress test with 103.0% of age predicted maximum heart rate achieved. 2. During stress exam the patient developed no significant symptoms, but had a hypertensive response to exercise(210 mm Hg). 3. There were no ischemic changes by EKG during stress. 4. Post stress, decreased left ventricular size, increased global systolic function with an estimated EF of 60 to 65%. 5. Negative stress echo for ischemia. 6. At rest there was normal left ventricular size and systolic function 7. Mild concentric left ventricular hypertrophy. 8. Normal cardiac valves. Stress Data: ? HR ?Systolic Diastolic Time Duration Minutes Seconds Baseline 83 bpm ?143 ?81 mmHg ?8 :14 ? Peak ? 171 bpm ?? 210 ?90 mmHg Max Pred HR ?166 % of Max ? 103% ??Seaman Treadmill Score 8 Double Product [id number] Echo Findings:This is a negative stress echo test for ischemia. Post stress, decreased left ventricular size, increased global systolic function with an estimated EF of 60 to 65%. LV regional wall motion abnormalities are not present post exercise. EKG:During exercise, the patient developed normal sinus rhythm with normal conduction. There were no ischemic changes by EKG during stress. Exam Protocol:The patient presents with no significant symptoms at baseline. The patient exercised 8 min 14 sec to stage III according to the Chucho stress echo protocol. Test terminated due to shortness of breath. 10.2 METS were achieved. The patient achieved a heart rate of 171 bpm which is 103.0% of maximum predicted heart rate. Maximum systolic blood pressure was 210 [place] [address]. Maximum stress test with 103.0% of age predicted maximum heart rate achieved. The blood pressure response was hypertensive. The patient developed no significant symptoms during the stress exam. Low (less than 1% annual mortality rate) non invasive risk stratification. Exercise stress test Seaman Treadmill Score of 8. LV Wall Scoring: Stage: All segments are normal. REST Stage: All segments are normal. IMPOST Chamber Sizes and Function Normal left ventricular size, normal global systolic function with an estimated EF of 60 - 65%. Mild concentric left ventricular hypertrophy. LV regional wall motion abnormalities are not present. Left atrial size is normal. Left atrial pressure is normal. Right ventricular cavity size is normal, global systolic RV function is normal. RV wall thickness is normal. The right atrium is normal. The sinus of Valsalva is normal sized. The ascending aorta is normal sized. Valves, RV Pressures and Diastolic Function The aortic valve is normal in structure and trileaflet, no stenosis and no regurgitation. The mitral valve is normal in structure, no mitral regurgitation. The tricuspid valve is normal in structure. Tricuspid regurgitation is trace. Unable to assess right ventricular systolic pressure. Masses, Effusion, Shunts There is no pericardial effusion. No left to right shunting was detected by limited color flow Doppler interrogation of the interatrial septum. MEASUREMENTS AND CALCULATIONS 2-D Measurements and LV Function: LVID (d) 4.2 cm LV FS% (2D) ?? 48 % LVID (s) 2.2 cm LVOT diameter 1.9 cm IVS (d) ??1.0 cm HR ?83 bpm LVPW (d) 1.0 cm Ao Sinus 3.4 cm Asc Ao ?? 3.3 cm . This study was interpreted by an [facility] accredited facility. ??Final ?? Procedure Note Peng Jaime MD - 08/06/2023 STRESS ECHOCARDIOGRAM MELISSA COOK : 1970 53 years Study Date: 08/06/2023 8:17:07 AM Gender: F BP: 143/81 mmHg Height: 160.00 cm BSA: 1.61 m? ? ? Weight: 59.00 kg Tech: [facility] Referring MD: MADAN HUGO Site: [facility] Reading Location: MOBILE OP Patient Location: Outpatient. Procedure: Stress Echo, Color Doppler and Limited Spectral Doppler. Brucestress echo. Indication for study: Atypical chest pain; Abnormal EKG Cardiac Rhythm: Regular.Study quality: Final Impressions: 1. Maximum stress test with 103.0% of age predicted maximum heart rateachieved. 2. During stress exam the patient developed no significant symptoms, buthad a hypertensive response to exercise(210 mm Hg). 3. There were no ischemic changes by EKG during stress. 4. Post stress, decreased left ventricular size, increased globalsystolic function with an estimated EF of 60 to 65%. 5. Negative stress echo for ischemia. 6. At rest there was normal left ventricular size and systolic function 7. Mild concentric left ventricular hypertrophy. 8. Normal cardiac valves. Stress Data: HR Systolic Diastolic Time Duration Minutes Seconds Baseline 83 bpm 143 81 mmHg 8 :14 Peak 171 bpm 210 90 mmHg Max Pred HR 166 % of Max 103% Seaman Treadmill Score 8 Double Product [id number] Echo Findings:This is a negative stress echo test for ischemia. Poststress, decreased left ventricular size, increased global systolicfunction with an estimated EF of 60 to 65%. LV regional wall motionabnormalities are not present post exercise. EKG:During exercise, the patient developed normal sinus rhythm with normalconduction. There were no ischemic changes by EKG during stress. Exam Protocol:The patient presents with no significant symptoms atbaseline. The patient exercised 8 min 14 sec to stage III according to [facility] stress echo protocol. Test terminated due to shortness of breath.10.2 METS were achieved. The patient achieved a heart rate of 171 bpmwhich is 103.0% of maximum predicted heart rate. Maximum systolic bloodpressure was 210 [place] [address]. Maximumstress test with 103.0% of age predicted maximum heart rate achieved. Theblood pressure response was hypertensive. The patient developed nosignificant symptoms during the stress exam. Low (less than 1% annualmortality rate) non invasive risk stratification. Exercise stress testDuke Treadmill Score of 8. LV Wall Scoring: Stage: All segments are normal. REST Stage: All segments are normal. IMPOST Chamber Sizes and Function Normal left ventricular size, normal global systolic function with anestimated EF of 60 - 65%. Mild concentric left ventricular hypertrophy. LVregional wall motion abnormalities are not present. Left atrial size isnormal. Left atrial pressure is normal. Right ventricular cavity size isnormal, global systolic RV function is normal. RV wall thickness isnormal. The right atrium is normal. The sinus of Valsalva is normal sized.The ascending aorta is normal sized. Valves, RV Pressures and Diastolic Function The aortic valve is normal in structure and trileaflet, no stenosis and noregurgitation. The mitral valve is normal in structure, no mitralregurgitation. The tricuspid valve is normal in structure. Tricuspidregurgitation is trace. Unable to assess right ventricular systolicpressure. Masses, Effusion, Shunts There is no pericardial effusion. No left to right shunting was detectedby limited color flow Doppler interrogation of the interatrial septum. MEASUREMENTS AND CALCULATIONS 2-D Measurements and LV Function: LVID (d) 4.2 cm LV FS% (2D) 48 % LVID (s) 2.2 cm LVOT diameter 1.9 cm IVS (d) 1.0 cm HR 83 bpm LVPW (d) 1.0 cm Ao Sinus 3.4 cm Asc Ao 3.3 cm . This study was interpreted by an [facility] accredited facility. Final Madan Hugo MD ECHO ORD * MD CV STRS TST XERS&/OR RX CONT ECG W/SI&R (08/06/2023 12:00 AM CDT) Vern Barajas DO [facility] - CARDIOVASCULAR SYSTEM SERVICES * EKG 12 LEAD (07/02/2023 9:51 AM ORCHID WORKER) Madan Hugo MD EKG ORD * MD READING EKG - NO CHARGE, COMP ONLY (07/02/2023 9:50 AM ORCHID WORKER) Madan Hugo MD PB - PROVIDER READI NGS * (ABNORMAL) LIPID PANEL W REFLEX MEASURED LDL (09/18/2022 11:00 AM CDT) CHOLESTEROL,TOTAL 225 mg/dL 023 11:55 PM CDT [facility] Comment: Cholesterol, Total Reference Ranges Desirable <200 mg/dL Borderline 200-239 mg/dL High >=240 mg/dL TRIGLYCERIDES 74 <150 mg/dL 09/18/2022 11:55 PM CDT [facility] HDL CHOLESTEROL 77 >40 mg/dL 11:55 PM CDT [facility] NON-HDL CHOLESTEROL 148(H) <145 mg/dl 09/18/2022 11:55 PM CDT [facility] CHOL/HDL RATIO 2.92 <4.50 09/18/2022 11:55 PM CDT [facility] LDL CHOLESTEROL 133(H) <=130 mg/dL 09/18/2022 11:55 PM CDT [facility] VLDL CHOLESTEROL 15 <=30 mg/dL 09/18/2022 11:55 PM CDT [facility] PROVIDER ORDERED STATUS RANDOM 09/18/2022 11:55 PM CDT [facility] Blood BLOOD SPECIMEN / Unknown Venipuncture / Unknown 09/18/2022 11:00 AM CDT 09/18/2022 11:11 AM CDT Alayna GODWIN CHEMISTRY [facility] [address] [place] [address], [place] * XR MAMMO ISABELLE BILAT SCREEN (09/18/2022 10:55 AM CDT) Anatomical Region Laterality Modality BREASTS, Breast Left, Breast Right Bilateral Mammography Impressions 09/18/2022 3:55 PM CDT ??There is no radiographic evidence for malignancy. ??Recommend annual mammograms. MAMMOGRAM ASSESSMENT: ??ACR 1 Negative PATIENTS: You will also receive a letter with your examination results in an easy to read format. ??If you have questions about your results, please contact your referring provider. Narrative 09/18/2022 3:55 PM CDT For Patients: As a result of the 21st Century Cures Act, medical imaging exams and procedure reports are released immediately into your electronic medical record. You may view this report before your referring provider. If you have questions, please contact your health care provider. XR MAMMO ISABELLE BILAT SCREEN [[id number]] CLINICAL HISTORY: ??This is an asymptomatic 52 y.o. patient. INDICATION FOR EXAM: Mammogram Screening. TECHNIQUE: CC & MLO views were obtained. ??This study was evaluated with the assistance of Computer-Aided Detection. Breast Tomosynthesis was used in interpretation. COMPARISON FILM: Yes 10/26/20 [facility] 04/25/19 [facility] FINDINGS: ??The breasts are heterogeneously dense, which may obscure small masses. There are no dominant masses, suspicious micro calcifications or areas of architectural distortion. Alayna GODWIN MAMMO * COLONOSCOPY (11/21/2020 8:26 AM CDT) 11/21/2020 8:26 AM CDT Narrative Transcriptions Nick Miller MD - 11/21/2020 8:57 AM CDT Patient Name: Melissa Cook Procedure Date: 11/21/2020 Gender: Female Date of : 1970 Admit Type: Outpatient Procedure: Colonoscopy Proceduralist: Nick Miller MD , Paulina Waite (Nurse) Referring MD: Alayna Harp Indications/Pre-Op Diagnosis: Screening for colorectal malignant neoplasm, This is the patient's first colonoscopy Medications: Midazolam 3 mg IV, Fentanyl 100 microgramsIV, The level of sedation administered wasmoderate Procedure Description: The patient had risks, benefits and alternatives explained to andgave informed consent. The patient had a stable cardiopulmonary status and judged an adequate candidate for conscious sedation. The Colonoscope was passed through the anus and advanced to thececum, identified by appendiceal orifice and ileocecal valve. Thecolonoscopy was performed without difficulty. The patient tolerated the procedure well. The quality of the bowel preparation was good. Anatomical landmarks were photographed. Complications: No immediate complications. Estimated Blood Loss & Specimen: Estimated blood loss: none. Specimen collected - None Findings: The entire examined colon appeared normal on direct and retroflexion views. Impressions/Post-Op Diagnosis: - The entire examined colon is normal on direct and retroflexionviews. - No specimens collected. Recommendation: - Patient has a contact number available for emergencies. The signsand symptoms of potential delayed complications were discussed with the patient. Return to normal activities tomorrow. Written discharge instructions were provided to the patient. - Resume previous diet. - Continue present medications. - Repeat colonoscopy in 10 years for screening purposes. Moderate Sedation: Moderate (conscious) sedation was administered by the endoscopy nurse and supervised by the endoscopist. The following parameters were monitored: oxygen saturation, heart rate, respiratory rate, blood pressure, adequacy of pulmonary ventilation and reponse to care. Please refer to the patient's medical record flowsheets and nursing notes for moderate sedation details. Total physician intraservice time was 18 minutes. Nick Miller MD 11/21/2020 8:57:44 AM This report has been signed electronically. Note Initiated On: 11/21/2020 8:26 AM Procedure Code(s): --- Professional --- 64602, Colonoscopy, flexible; diagnostic, including collection of specimen(s) bybrushing or washing, when performed (separateprocedure) Diagnosis Code(s): --- Professional --- Z12.11, Encounter for screening formalignant neoplasm of colon CPT copyright 2020 [employer]. All rights reserved. The codes documented in this report are preliminary and upon post secondary professional reviewmay be revised to meet current compliance requirements. Scope In: 8:39:38 AM Scope Withdrawal Time 0 hours 8 minutes 52 seconds Scope Out: 8:54:27 AM Nick Miller MD PROCEDURE ORD * BAG PRESSER THIN PREP PAP SCREEN IMAGED (10/26/2020 8:58 AM CDT) Case Report Gynecologic Cytology Report ? Case: [id number] ? Authorizing Provider: ??Alayna Harp PA Collected: ? 10/26/2020 0858 ? Ordering Location: ? [facility] ?? Received: ?10/26/2020 0932 ? Clinic ? First Screen: ?Rafael, David ? Pathologist: ? Lakeisha Kenny MD ? Specimen: ?BAG PRESSER ThinPrep Vial Screening, Cervical ? 11/08/2020 5:42 PM CDT [facility] INTERPRETATION/ RESULT NEGATIVE FOR INTRAEPITHELIAL LESION OR MALIGNANCY (NIL) (none) 11/08/2020 5:42 PM CDT [facility] R NON-NEOPLASTIC FINDING(S) Reactive cellular changes associated with inflammation/repa ir 11/08/2020 5:42 PM CDT [facility] SPECIMEN ADEQUACY Satisfactory for evaluation No endocervical component seen 11/08/2020 5:42 PM CDT [facility] HPV REQUEST HPV and PAP 11/08/2020 5:42 PM CDT [facility] Date of LMP unsure 11/08/2020 5:42 PM CDT [facility] Last Pap Date 01/22/18 11/08/2020 5:42 PM CDT [facility] Last Pap Result NIL 5:42 PM CDT [facility] Abnormal Pap or [place] Bx in last 5 years No 11/08/2020 5:42 PM CDT [facility] Menstrual Status Perimenopausal 11/08/2020 5:42 PM CDT [facility] [place] Bx Done Today No 11/08/2020 5:42 PM CDT [facility] Additional Information None given 11/08/2020 5:42 PM CDT [facility] Comment: Cytology is screened at [facility] - [address], [place] [address] and [facility] - [address], [place] [address] and [facility] - [address] [address] Interpreted at [facility] - [address], [place] [address] Automated Review Successful 11/08/2020 5:42 PM CDT [facility] Comment:Specimen processed s uccessfully by automated data migration lead device, ThinPrep Imaging System, [employer] ANCILLARY TESTING BAG PRESSER HPV Ordered, Please see separate report 11/08/2020 5:42 PM CDT [facility] Note The pap test is a screening technique, not a diagnostic procedure. It is used primarily to screen for squamous cancers and precursor lesions. Published studies have shown that it is subject to both false negative and false positive results. The pap test should not be used as the sole means to diagnose or exclude pre-malignant and malignant lesions. 11/08/2020 5:42 PM CDT [facility] Other (Cervical) Non-Blood / Unknown 10/26/2020 8:58 AM CDT 10/26/2020 9:32 AM CDT Alayna GODWIN PATHOLOGY/CYTOL OGY Performing Organization Address City/[facility]/ZIP Co de Phone Number [facility] [address] [place] [address], [place] * ANTI HCV (02/20/2020 1:47 PM CDT) HEPATITIS C ANTIBODY Non-React ascencion Non-React ascencion 02/20/2020 10:45 PM CDT [facility] Comment:Antibodies to HCV no t detected; does not exclude the possibility of exposure to HCV. Blood BLOOD SPECIMEN / Unknown Butterfly / Unknown 02/20/2020 1:47 PM CDT 02/20/2020 1:48 PM CDT Alayna GODWIN [facility] [address] [place] [address], [place] * ANTI HIV 1/2 (02/20/2020 1:47 PM CDT) HIV-1/HIV-2 ANTIBODY Non-Reacti ve Non-Reacti ve 02/20/2020 10:45 PM CDT [facility] Comment:HIV-1 p24 and HIV-1/ HIV-2 Ab not detected. Blood BLOOD SPECIMEN / Unknown Butterfly / Unknown 02/20/2020 1:47 PM CDT 02/20/2020 1:48 PM CDT Alayna GODWIN [facility] 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
== END 2023-09-04 20:26 | disposition home or self-care (01) ==
LOC: AMB 09-14 13:06
PROVIDERS: PCP Physician Assistant Medical; Visit Provider Family Medicine
DX: R42 Dizziness and giddiness (principal); R53.83 Other fatigue
CPT/HCPCS: A0998